=== PATIENT | female | born 1950 | race Caucasian/White ===

== ENCOUNTER → 2017-01-10 | Outpatient (CLI) | payer OTHER | END | disposition home or self-care (01) | LOC: US 18:08 | PROC: B54BZZZ Ultrasonography of Right Lower Extremity Veins (ICD-10-PCS; principal; 2017-01-10) | DX: L03.115 Cellulitis of right lower limb (principal); R60.0 Localized edema ==

== ENCOUNTER 2017-02-28 15:55 | Inpatient (IN) | payer OTHER ==
[~2017-02-28] VITALS: Ht 175.3 cm; Wt 117.9 kg
[2017-02-28 18:58] LABS: BASOPHIL % 0.5 % (0-2); PLATELET COUNT 195 x10^3mcL (130-400)
[2017-02-28 19:01] LABS: RED CELL DISTRIBUTION WIDTH 14.7 % (11.5-14.5)
[2017-02-28 19:08] LABS: BILIRUBIN TOTAL 0.19 mg/dL (0.20-1.00); CARBON DIOXIDE 23.4 mmol/L (21-32); POTASSIUM SERUM 4.4 mmol/L (3.5-5.1)
[2017-02-28 19:23] LABS: ALBUMIN 2.6 g/dL (3.4-5.0); CREATININE SERUM 4.3 mg/dL (0.6-1.0); TOTAL PROTEIN, SERUM 6.1 g/dL (6.4-8.2)
[2017-02-28] MEDS ORDERED: ABILIFY5 M1 PO (20:08)
[2017-02-28] MEDS ORDERED: MONTELUKAST SOD10 M1 PO (20:09)
[2017-02-28] MEDS ORDERED: LEVOTHYROXINE0.05 M2 PO (20:09)
[2017-02-28] MEDS ORDERED: LYRICA75 M1 PO (20:09)
[2017-02-28] MEDS ORDERED: FLUOXETINE40 MG PO (20:09)
[2017-02-28] MEDS ORDERED: PRO40 PO (20:10)
[2017-02-28] MEDS ORDERED: LOVAZA1 G1 PO (20:10)
[2017-02-28] MEDS ORDERED: SOD650 PO (20:11)
[2017-02-28] MEDS ORDERED: NATURAL IRON65 MG PO (20:11)
[2017-02-28] MEDS ORDERED: BUMETANIDE1 MG PO (20:11)
[2017-02-28] MEDS ORDERED: CRESTOR5 M1 (20:11)
[2017-02-28 20:57] VITALS: BP 174/82
[2017-02-28 21:49] LABS: T3 TOTAL 0.63 ng/mL
[2017-02-28 22:04] LABS: MAGNESIUM 1.8 mg/dL (1.8-2.4); PHOSPHOROUS 4.9 mg/dL (2.5-4.9)
[2017-02-28 22:06] LABS: CHOLESTEROL/HDL RATIO 2.9
[2017-02-28 22:24] LABS: FREE T4 0.96 ng/dL (0.76-1.46); FREE THYROXINE INDEX 2.1 ug/dL (1.4-4.5); T4(THYROXINE) 5.9 ug/dL (4.7-13.3)
[2017-03-01 00:30] VITALS: BP 157/69
[2017-03-01 01:31] LABS: UA SPECIFIC GRAVITY 1.015 (1.005-1.035); microscopic required? YES; urine erythrocyte 2+ (NEGATIVE)
[2017-03-01 04:31] LABS: IRON 39 ug/dL (50-170); RED BLOOD CELLS 2.41 M/mm3 (4.10-5.10); TOTAL IRON BINDING CAPACITY 237 ug/dL (250-450)
[2017-03-01 06:04] VITALS: BP 116/56
[2017-03-01 06:43] LABS: CALCIUM 8.7 mg/dL (8.5-10.1); CARBON DIOXIDE 23.5 mmol/L (21-32); MAGNESIUM 1.9 mg/dL (1.8-2.4); PHOSPHOROUS 4.7 mg/dL (2.5-4.9); POTASSIUM SERUM 4.1 mmol/L (3.5-5.1)
[2017-03-01 06:46] LABS: CREATININE SERUM 4.2 mg/dL (0.6-1.0)
[2017-03-01 07:34] LABS: BASOPHIL % 0.4 % (0-2); PLATELET COUNT 189 x10^3mcL (130-400); RED CELL DISTRIBUTION WIDTH 14.2 % (11.5-14.5)
[2017-03-01 18:12] VITALS: BP 1147/77
[2017-03-01 21:45] VITALS: BP 147/76
[2017-03-02] VITALS: BP 157/75
[2017-03-02 05:35] VITALS: BP 145/75
[2017-03-02 06:09] LABS: BASOPHIL % 0.4 % (0-2); PLATELET COUNT 171 x10^3mcL (130-400)
[2017-03-02 06:27] LABS: CALCIUM 8.4 mg/dL (8.5-10.1); CARBON DIOXIDE 22.7 mmol/L (21-32); CREATININE SERUM 3.7 mg/dL (0.6-1.0); MAGNESIUM 1.7 mg/dL (1.8-2.4); PHOSPHOROUS 4.6 mg/dL (2.5-4.9); POTASSIUM SERUM 4.1 mmol/L (3.5-5.1)
[2017-03-02 09:30] VITALS: BP 151/73
[2017-03-02] MEDS ORDERED: LAC PO (10:26)
[2017-03-02] MEDS ORDERED: MAC100 PO (10:27)
[2017-03-02 10:41] VITALS: BP 151/73
[2017-03-02 14:07] VITALS: BP 128/60
== END 2017-03-02 15:38 | disposition home health service (06) | DRG 682 ==
LOC: ED 15:55 → DU 19:53
PROVIDERS: Emergency Medicine; Family Medicine; ADMIT Family Medicine
PROC: 30233N1 Transfusion of Nonautologous Red Blood Cells into Peripheral Vein, Percutaneous Approach (ICD-10-PCS; principal; 2017-03-01)
DX: I12.9 Hypertensive chronic kidney disease with stage 1 through stage 4 chronic kidney disease, or unspecified chronic kidney disease (principal); N17.0 Acute kidney failure with tubular necrosis; E43 Unspecified severe protein-calorie malnutrition; N18.4 Chronic kidney disease, stage 4 (severe); D68.69 Other thrombophilia; D63.1 Anemia in chronic kidney disease; E11.42 Type 2 diabetes mellitus with diabetic polyneuropathy; F32.9 Major depressive disorder, single episode, unspecified; J44.9 Chronic obstructive pulmonary disease, unspecified; E03.9 Hypothyroidism, unspecified; E78.5 Hyperlipidemia, unspecified; E66.9 Obesity, unspecified; Z68.38 Body mass index [BMI] 38.0-38.9, adult; Z87.891 Personal history of nicotine dependence; Z85.3 Personal history of malignant neoplasm of breast; Z92.21 Personal history of antineoplastic chemotherapy; Z92.3 Personal history of irradiation; Z79.4 Long term (current) use of insulin
CPT/HCPCS: 82962; 83880; 84439; 85378; 94150; 97110-GP; 97116-GP; 97530-GP; J0696; J1750; J1940; J7030; J7040; J7620; J7626; P9016; Q0092

== ENCOUNTER 2017-03-05 23:27 | Observation (INO) | payer OTHER ==
[~2017-03-05] VITALS: Ht 175.3 cm; Wt 118.0 kg
[~2017-03-05 23:27] MED LIST: ABILIFY5 M1 PO; BUMETANIDE1 MG PO; CRESTOR5 M1; FLUOXETINE40 MG PO; LAC PO; LEVOTHYROXINE0.05 M2 PO; LOVAZA1 G1 PO; LYRICA75 M1 PO; MAC100 PO; MONTELUKAST SOD10 M1 PO; NATURAL IRON65 MG PO; PRO40 PO; SOD650 PO
[2017-03-06] VITALS (7 sets, daily range): BP systolic 120–161; BP diastolic 72–80; Ht 175.3 cm; Wt 118.0 kg
[2017-03-06 00:13] LABS: BASOPHIL % 0.6 % (0-2); PLATELET COUNT 171 x10^3mcL (130-400)
[2017-03-06 00:14] LABS: RED CELL DISTRIBUTION WIDTH 15.1 % (11.5-14.5)
[2017-03-06 00:41] LABS: ALBUMIN 2.8 g/dL (3.4-5.0); BILIRUBIN TOTAL 0.2 mg/dL (0.20-1.00); CALCIUM 8.1 mg/dL (8.5-10.1); CARBON DIOXIDE 24.8 mmol/L (21-32); POTASSIUM SERUM 4.3 mmol/L (3.5-5.1); TOTAL PROTEIN, SERUM 6.2 g/dL (6.4-8.2)
[2017-03-06 00:55] LABS: CREATININE SERUM 4.4 mg/dL (0.6-1.0)
[2017-03-06 00:58] LABS: CK-MB 3.3 ng/mL (0-3.6)
[2017-03-06 04:23] LABS: MAGNESIUM 1.7 mg/dL (1.8-2.4); PHOSPHOROUS 5.7 mg/dL (2.5-4.9)
[2017-03-06 04:31] LABS: T3 TOTAL 0.68 ng/mL
[2017-03-06 04:43] LABS: FREE T4 0.89 ng/dL (0.76-1.46); FREE THYROXINE INDEX 1.7 ug/dL (1.4-4.5); T4(THYROXINE) 4.9 ug/dL (4.7-13.3)
[2017-03-06 06:16] LABS: UA SPECIFIC GRAVITY 1.015 (1.005-1.035); microscopic required? YES; urine erythrocyte TRACE (NEGATIVE)
[2017-03-06 06:29] LABS: AMPHETAMINE QUAL UR NONE DETECTED (NEG <=1000)
[2017-03-07 05:56] VITALS: BP 127/66
[2017-03-07 06:22] LABS: CALCIUM 8.2 mg/dL (8.5-10.1); CARBON DIOXIDE 28.4 mmol/L (21-32); CREATININE SERUM 3.8 mg/dL (0.6-1.0); POTASSIUM SERUM 4.5 mmol/L (3.5-5.1)
[2017-03-07 09:55] VITALS: BP 149/76
[2017-03-07 10:30] VITALS: BP 149/76
[2017-03-07 13:36] VITALS: BP 114/60
[2017-03-07 16:26] VITALS: BP 114/60
[2017-03-07] MEDS ORDERED: ZES20 PO (16:59)
[2017-03-07] MEDS ORDERED: METOPROLOL TART25 M1 PO (17:00)
[2017-03-07 17:35] VITALS: BP 131/75
== END 2017-03-07 21:00 | disposition home or self-care (01) | DRG 205 ==
LOC: ED 23:27 → DU 03-06 02:55
PROVIDERS: Emergency Medicine; ADMIT Family Medicine
DX: M94.0 Chondrocostal junction syndrome [Tietze] (principal); E43 Unspecified severe protein-calorie malnutrition; N39.0 Urinary tract infection, site not specified; N18.4 Chronic kidney disease, stage 4 (severe); D68.69 Other thrombophilia; E11.59 Type 2 diabetes mellitus with other circulatory complications; E83.42 Hypomagnesemia; E78.1 Pure hyperglyceridemia; D63.8 Anemia in other chronic diseases classified elsewhere; F32.9 Major depressive disorder, single episode, unspecified; E66.9 Obesity, unspecified; Z68.38 Body mass index [BMI] 38.0-38.9, adult; Z79.84 Long term (current) use of oral hypoglycemic drugs
CPT/HCPCS: 82962; 83880; 84439; 97110-GP; G0378; J7030; J7613; Q0092

== ENCOUNTER 2017-03-19 01:42 | Inpatient (IN) | payer OTHER ==
[~2017-03-19] VITALS: Ht 175.3 cm; Wt 116.0 kg
[~2017-03-19 01:42] MED LIST changes: +METOPROLOL TART25 M1 PO; +ZES20 PO
[2017-03-19 02:38] LABS: BASOPHIL % 0.4 % (0-2); PLATELET COUNT 186 x10^3mcL (130-400)
[2017-03-19 02:40] LABS: RED CELL DISTRIBUTION WIDTH 15.6 % (11.5-14.5)
[2017-03-19 02:43] LABS: BILIRUBIN TOTAL 0.28 mg/dL (0.20-1.00); CALCIUM 8.2 mg/dL (8.5-10.1); CARBON DIOXIDE 21.7 mmol/L (21-32); CREATININE SERUM 3.9 mg/dL (0.6-1.0); POTASSIUM SERUM 4.7 mmol/L (3.5-5.1)
[2017-03-19 02:44] LABS: ALBUMIN 2.5 g/dL (3.4-5.0)
[2017-03-19] MEDS ORDERED: ABILIFY5 M1 PO (04:12)
[2017-03-19] MEDS ORDERED: XANAX0.25 MG PO (04:13)
[2017-03-19] MEDS ORDERED: CRESTOR5 M1 PO (04:14)
[2017-03-19] MEDS ORDERED: FLUOXETINE40 MG PO (04:14)
[2017-03-19] MEDS ORDERED: LEVOTHYROXINE0.05 M2 PO (04:14)
[2017-03-19] MEDS ORDERED: BUMETANIDE1 MG PO (04:14)
[2017-03-19] MEDS ORDERED: OMEGA 3 FISH O1 EACH PO (04:15)
[2017-03-19] MEDS ORDERED: SINGULAIR10 MG PO (04:15)
[2017-03-19] MEDS ORDERED: LYRICA75 M1 PO (04:15)
[2017-03-19] MEDS ORDERED: BETAMETHASONE TOP (04:16)
[2017-03-19] MEDS ORDERED: NATURAL IRON65 MG PO (04:16)
[2017-03-19] MEDS ORDERED: [UNRECOGNIZED DRUG - OTHER] TOP (04:16)
[2017-03-19] MEDS ORDERED: SODIUM BICARBO650 MG PO (04:16)
[2017-03-19] MEDS ORDERED: PROTONIX20 MG PO (04:16)
[2017-03-19] MEDS ORDERED: HUMALOG MIX 75/10 ML (04:17)
[2017-03-19] MEDS ORDERED: LANTUS SOLOS100 U/M1 (04:17)
[2017-03-19] MEDS ORDERED: SYMBICORT1 AE3 INH (04:17)
[2017-03-19] MEDS ORDERED: VITAMIN B121000 MCG PO (04:18)
[2017-03-19] MEDS ORDERED: C500500 MG PO (04:18)
[2017-03-19 09:44] LABS: FREE T4 0.85 ng/dL (0.76-1.46); FREE THYROXINE INDEX 1.8 ug/dL (1.4-4.5); T4(THYROXINE) 5.1 ug/dL (4.7-13.3)
[2017-03-19 10:14] LABS: MAGNESIUM 1.6 mg/dL (1.8-2.4); PHOSPHOROUS 4.7 mg/dL (2.5-4.9)
[2017-03-19 10:15] LABS: CHOLESTEROL/HDL RATIO 3.6
[2017-03-19 14:47] VITALS: BP 83/47
[2017-03-19 18:06] LABS: MAGNESIUM 2.2 mg/dL (1.8-2.4); PHOSPHOROUS 5.7 mg/dL (2.5-4.9)
[2017-03-19 21:16] VITALS: BP 107/60
[2017-03-20 05:30] VITALS: BP 115/54
[2017-03-20 08:03] LABS: BASOPHIL % 0.2 % (0-2); PLATELET COUNT 172 x10^3mcL (130-400)
[2017-03-20 08:04] LABS: RED CELL DISTRIBUTION WIDTH 16.6 % (11.5-14.5)
[2017-03-20 08:24] LABS: CALCIUM 8.1 mg/dL (8.5-10.1); CARBON DIOXIDE 20.8 mmol/L (21-32); MAGNESIUM 1.9 mg/dL (1.8-2.4); PHOSPHOROUS 6.4 mg/dL (2.5-4.9); POTASSIUM SERUM 4.6 mmol/L (3.5-5.1)
[2017-03-20 10:15] VITALS: BP 100/48
[2017-03-20 12:00] VITALS: BP 100/48
[2017-03-20 14:01] VITALS: BP 126/61
[2017-03-20 14:42] LABS: T3 TOTAL 0.47 ng/mL
[2017-03-20 17:33] VITALS: BP 102/47
[2017-03-20 21:59] VITALS: BP 93/45
[2017-03-21 05:42] VITALS: BP 90/50
[2017-03-21 07:52] LABS: PLATELET COUNT 163 x10^3mcL (130-400)
[2017-03-21 07:55] LABS: RED CELL DISTRIBUTION WIDTH 15.8 % (11.5-14.5)
[2017-03-21 08:17] LABS: BILIRUBIN TOTAL 0.26 mg/dL (0.20-1.00); CALCIUM 7.9 mg/dL (8.5-10.1); POTASSIUM SERUM 4.3 mmol/L (3.5-5.1)
[2017-03-21 08:26] LABS: ALBUMIN 1.5 g/dL (3.4-5.0); CREATININE SERUM 4.8 mg/dL (0.6-1.0); TOTAL PROTEIN, SERUM 4.6 g/dL (6.4-8.2)
[2017-03-21 09:58] VITALS: BP 97/42
[2017-03-21 10:51] LABS: BAND NEUTROPHIL 26 % (0-10); BASOPHIL 0 % (0-2); METAMYELOCTE 2 % (0-2); MONOCYTE 7 % (0-7); SEGMENTED NEUTROPHILS 53 % (37-75)
[2017-03-21 10:53] LABS: PLATELET MORPHOLOGY PLATELETS NORMAL; burr cell (echinocyte) 1+; rbc morphology (normal/abnorm) ABNORMAL (NORMAL)
[2017-03-21 17:21] VITALS: BP 95/44
[2017-03-21 22:00] VITALS: BP 107/62
[2017-03-22 01:42] LABS: UA SPECIFIC GRAVITY 1.025 (1.005-1.035); microscopic required? YES; urine erythrocyte 3+ (NEGATIVE)
[2017-03-22 05:46] VITALS: BP 95/38; BP 95/39
[2017-03-22 06:52] VITALS: BP 96/44
[2017-03-22 09:31] VITALS: BP 91/50
[2017-03-22 10:43] LABS: AMPHETAMINE QUAL UR NONE DETECTED (NEG <=1000)
[2017-03-22 15:12] LABS: CALCIUM 7.8 mg/dL (8.5-10.1); CARBON DIOXIDE 14.6 mmol/L (21-32); POTASSIUM SERUM 4.3 mmol/L (3.5-5.1)
[2017-03-22 15:14] LABS: CREATININE SERUM 5.8 mg/dL (0.6-1.0)
[2017-03-22 17:16] VITALS: BP 107/58
[2017-03-22 19:50] VITALS: BP 92/50
[2017-03-23 05:49] VITALS: BP 102/52
[2017-03-23 06:34] LABS: PLATELET COUNT 223 x10^3mcL (130-400)
[2017-03-23 06:54] LABS: CALCIUM 7.8 mg/dL (8.5-10.1); CARBON DIOXIDE 13.2 mmol/L (21-32); MAGNESIUM 1.7 mg/dL (1.8-2.4); PHOSPHOROUS 7.9 mg/dL (2.5-4.9); POTASSIUM SERUM 4.3 mmol/L (3.5-5.1)
[2017-03-23 06:56] LABS: CREATININE SERUM 6.3 mg/dL (0.6-1.0)
[2017-03-23 07:03] LABS: RED CELL DISTRIBUTION WIDTH 16.3 % (11.5-14.5)
[2017-03-23 08:30] LABS: MONOCYTE 6 % (0-7); SEGMENTED NEUTROPHILS 80 % (37-75)
[2017-03-23 08:31] LABS: BAND NEUTROPHIL 11 % (0-10); BASOPHIL 0 % (0-2)
[2017-03-23 08:32] LABS: PLATELET MORPHOLOGY PLATELETS NORMAL; burr cell (echinocyte) 1+; rbc morphology (normal/abnorm) ABNORMAL (NORMAL)
[2017-03-23 10:04] VITALS: BP 91/48
[2017-03-23 17:26] VITALS: BP 121/62
[2017-03-23 21:25] VITALS: BP 120/74
[2017-03-23 21:28] VITALS: BP 104/69
[2017-03-24 06:07] VITALS: BP 112/55
[2017-03-24 06:48] LABS: PLATELET COUNT 217 x10^3mcL (130-400)
[2017-03-24 07:01] LABS: RED CELL DISTRIBUTION WIDTH 15.5 % (11.5-14.5)
[2017-03-24 07:22] LABS: CALCIUM 7.7 mg/dL (8.5-10.1); CARBON DIOXIDE 17.1 mmol/L (21-32); POTASSIUM SERUM 3.6 mmol/L (3.5-5.1)
[2017-03-24 07:27] LABS: CREATININE SERUM 5.2 mg/dL (0.6-1.0)
[2017-03-24 07:35] VITALS: BP 116/66
[2017-03-24 07:41] LABS: MAGNESIUM 1.6 mg/dL (1.8-2.4); PHOSPHOROUS 6.5 mg/dL (2.5-4.9)
[2017-03-24 08:03] LABS: BAND NEUTROPHIL 2 % (0-10); MONOCYTE 4 % (0-7); SEGMENTED NEUTROPHILS 90 % (37-75)
[2017-03-24 08:04] LABS: rbc morphology (normal/abnorm) NORMAL (NORMAL)
[2017-03-24 09:48] VITALS: BP 114/60
[2017-03-24 17:31] VITALS: BP 99/44
[2017-03-24 17:44] VITALS: BP 100/49
[2017-03-24 21:02] VITALS: BP 104/57
[2017-03-25 05:39] VITALS: BP 130/57
[2017-03-25 07:16] LABS: CALCIUM 7.5 mg/dL (8.5-10.1); PHOSPHOROUS 7.1 mg/dL (2.5-4.9); POTASSIUM SERUM 3.5 mmol/L (3.5-5.1)
[2017-03-25 07:24] LABS: BASOPHIL % 0.3 % (0-2); PLATELET COUNT 212 x10^3mcL (130-400); RED CELL DISTRIBUTION WIDTH 15.8 % (11.5-14.5)
[2017-03-25 07:29] LABS: CREATININE SERUM 5.6 mg/dL (0.6-1.0)
[2017-03-25 07:30] VITALS: BP 112/54
[2017-03-25 10:20] VITALS: BP 129/63
[2017-03-25 17:27] VITALS: BP 120/65
[2017-03-25 21:44] VITALS: BP 126/66
[2017-03-26 05:49] VITALS: BP 155/76
[2017-03-26 07:33] LABS: CALCIUM 7.5 mg/dL (8.5-10.1); CARBON DIOXIDE 22.5 mmol/L (21-32); MAGNESIUM 2.3 mg/dL (1.8-2.4); PHOSPHOROUS 6.7 mg/dL (2.5-4.9); POTASSIUM SERUM 3.7 mmol/L (3.5-5.1)
[2017-03-26 07:37] LABS: BASOPHIL % 0.1 % (0-2); PLATELET COUNT 225 x10^3mcL (130-400)
[2017-03-26 07:46] LABS: CREATININE SERUM 5.6 mg/dL (0.6-1.0)
[2017-03-26 07:47] LABS: RED CELL DISTRIBUTION WIDTH 16.2 % (11.5-14.5)
[2017-03-26 08:00] VITALS: BP 150/86
[2017-03-26 11:17] VITALS: BP 125/61
[2017-03-26 13:02] VITALS: Ht 175.3 cm; Wt 116.0 kg
[2017-03-26 18:23] VITALS: BP 102/60
[2017-03-26 21:55] VITALS: BP 103/64
[2017-03-27 05:40] VITALS: BP 151/79
[2017-03-27 09:33] LABS: BASOPHIL % 0.4 % (0-2); PLATELET COUNT 218 x10^3mcL (130-400)
[2017-03-27 09:36] LABS: POTASSIUM SERUM 3.1 mmol/L (3.5-5.1); RED CELL DISTRIBUTION WIDTH 14.9 % (11.5-14.5)
[2017-03-27 09:37] LABS: CALCIUM 7.4 mg/dL (8.5-10.1); CARBON DIOXIDE 25.9 mmol/L (21-32); PHOSPHOROUS 5.3 mg/dL (2.5-4.9)
[2017-03-27 09:39] LABS: CREATININE SERUM 4.1 mg/dL (0.6-1.0)
[2017-03-27 10:13] VITALS: BP 151/80
[2017-03-27 13:50] VITALS: BP 151/80
[2017-03-27] MEDS ORDERED: LAC PO (14:16)
[2017-03-27] MEDS ORDERED: VANCOCIN125 MG PO (14:16)
[2017-03-27 18:00] VITALS: BP 126/57
[2017-03-27 21:31] VITALS: BP 140/65
[2017-03-28 00:09] VITALS: BP 137/70
== END 2017-03-28 01:00 | DRG 371 ==
LOC: ED 01:42 → DU 13:02 → MU 13:02 → DU 14:20 → MU 03-20 13:56
PROVIDERS: Emergency Medicine; Family Medicine; Internal Medicine; Surgery; ADMIT Family Medicine
PROC: 5A1D00Z (ICD-10-PCS; 2017-03-23)
PROC: 05HN33Z Insertion of Infusion Device into Left Internal Jugular Vein, Percutaneous Approach (ICD-10-PCS; 2017-03-23)
PROC: B544ZZA Ultrasonography of Left Jugular Veins, Guidance (ICD-10-PCS; 2017-03-23)
PROC: B548ZZA Ultrasonography of Superior Vena Cava, Guidance (ICD-10-PCS; 2017-03-26)
PROC: 02HV33Z Insertion of Infusion Device into Superior Vena Cava, Percutaneous Approach (ICD-10-PCS; principal; 2017-03-26 10:15)
DX: A04.7 Enterocolitis due to Clostridium difficile (principal); N18.6 End stage renal disease; N17.0 Acute kidney failure with tubular necrosis; E43 Unspecified severe protein-calorie malnutrition; I12.0 Hypertensive chronic kidney disease with stage 5 chronic kidney disease or end stage renal disease; N39.0 Urinary tract infection, site not specified; E87.1 Hypo-osmolality and hyponatremia; D68.69 Other thrombophilia; E11.59 Type 2 diabetes mellitus with other circulatory complications; E86.0 Dehydration; E83.42 Hypomagnesemia; F32.9 Major depressive disorder, single episode, unspecified; J45.909 Unspecified asthma, uncomplicated; E78.5 Hyperlipidemia, unspecified; D64.9 Anemia, unspecified; E66.9 Obesity, unspecified; Z68.37 Body mass index [BMI] 37.0-37.9, adult; Z79.4 Long term (current) use of insulin; Z87.891 Personal history of nicotine dependence
CPT/HCPCS: 82962; 83880; 84439; 86480; 86580; 87046; 87046-59; 97110-GP; 97530-GP; A4301; A4719; J0696; J1642; J1644; J1956; J2001; J2060; J2250; J2405; J3010; J3475; J3490; J7030; J7040; J7613; Q0092; Q9967